=== PATIENT | male | born 1995 ===

== ENCOUNTER 2024-11-24 09:00 | Day surgery (SDC) | payer OTHER ==
[2024-11-16 10:09] VITALS: BP 113/73
[2024-11-16 10:27] LABS: URINE APPEARANCE Clear; URINE BILIRRUBIN Negative (NEGATIVE); URINE BLOOD Negative; URINE COLOR Yellow; URINE GLUCOSE Negative (NEGATIVE); URINE KETONE Negative (NEGATIVE); URINE LEUKOCYTE Negative; URINE NITRATE Negative; URINE PROTEIN Negative (NEGATIVE); URINE UROBILINOGEN 0.2 E.U./dl
[2024-11-16 10:28] LABS: URINE BACTERIA 15.5 uL (0.0-1933); URINE WBC 7.2 uL (0.0-23.2)
[2024-11-16 10:33] LABS: URINE CAST 0.00 uL (0.0-1.40); URINE EPITHELIAL CELLS 1.2 uL (0.0-38.8); URINE RBC 0.4 uL (0.0-20.8)
[2024-11-16 10:37] LABS: BASO % 0.6 % (0.1-1.2); EOS # 0.38 (0.04-0.54); EOS % 7.2 % (0.7-7.0); LYMPH # 1.52 (1.18-3.74); LYMPH % 28.7 % (19.3-53.1); MEAN PLATELET VOLUME 10.80 fl (9.4-12.4); MONO # 0.34 (0.24-0.82); MONO % 6.4 % (4.7-12.5); NEUT # 3.02 (1.56-6.13); NEUT % 56.9 % (34.0-71.1); RED CELL DISTRIBUTION WIDTH 14.5 % (11.6-14.4)
[2024-11-16 10:59] LABS: INR 1.03
[2024-11-16 11:59] LABS: BUN CREA RATIO 17.0 (7.0-25.0); CREATININE SERUM 0.93 mg/dL (0.70-1.30); GFR 96.06; GLUCOSE FASTING 88.0 mg/dL (65-100); OSMOLALITY SERUM 280.0 MOSM/KG (275-295)
[~2024-11-24] VITALS: Ht 180.3 cm; Wt 79.4 kg
[2024-11-24] MEDS ORDERED: CEFAZOLIN SODIUM 1,000 MG VIAL ONE (09:37)
[2024-11-24] MEDS ORDERED: EPINEPHRINE HCL/PF 1 MG/ML AMPUL ONE (11:06)
[2024-11-24] MEDS ORDERED: POVIDONE-IODINE 118 ML BOTT TOP ONE (11:07)
[2024-11-24] MEDS ORDERED: LIDOCAINE HCL 1%/EPINEPHRINE 20ML VIAL IJ ONE (11:07)
[2024-11-24] MEDS ORDERED: SUGAMMADEX SODIUM 200 MG/2 ML VIAL IV ONE ×2 (12:08→12:57)
[2024-11-24] MEDS ORDERED: CEPHALEXIN500 MG PO (12:48)
[2024-11-24] MEDS ORDERED: CIPROFLOXACIN2.5 ML OTIC (12:48)
== END 2024-11-24 15:26 | disposition home or self-care (01) ==
LOC: CIR.AMB 09:00
PROVIDERS: ATTEND Otolaryngology Otology & Neurotology
DX: H70.12 Chronic mastoiditis, left ear (principal); H90.12 Conductive hearing loss, unilateral, left ear, with unrestricted hearing on the contralateral side